=== PATIENT | male | born 2000 | race Caucasian/White ===

== ENCOUNTER 2021-09-05 10:44 | Emergency (ER) | payer BC ==
[2021-09-05] MEDS ORDERED: lidocaine 1% 20 ML MDV SUBQ ONE (10:55)
--- NOTE | 2021-09-05 10:56 | ED Physician Documentation ---
History of Present Illness - Stated complaint Stated Complaint: LT TOE PX - History obtained from History obtained from: Patient - Additonal information Additional information: 3 to 4 months of pain from an ingrown toenail that he has been trying to deal with from with soaking it and manipulation but getting worse with more signs of infection. No fevers. Review of Systems Constitutional: reports: Reviewed and negative Eyes: reports: Reviewed and negative Cardiac: reports: Reviewed and negative Respiratory: reports: Reviewed and negative PD PAST MEDICAL HISTORY - Present Medications Home Medications: Ambulatory Orders Medication Instructions Recorded Confirmed cephALEXin [Keflex] 500 mg PO Q6H #28 cap 09/05/21 - Allergies Allergies/Adverse Reactions: Allergies Allergy/AdvReac Type Severity Reaction Status Date / Time No Known Drug Allergies Allergy Verified 09/05/21 11:00 PD ED PE NORMAL - Vitals Vital signs reviewed: Yes - General General: Alert and oriented X 3, No acute distress - Extremities Extremities: Other (Severely ingrown medial and lateral surfaces of the left great toenail with cellulitis up to the inner phalangeal joint. ) - Neuro Neuro: Alert and oriented X 3, Normal speech Results - Vitals Vitals: Vital Signs - 24 hr 09/05/21 10:58 Temperature 36.4 C L Heart Rate 73 Respiratory 16 Rate Blood Pressure 137/91 H O2 Saturation 99 Oxygen O2 Source Room air Procedures - General procedure General procedure: After verbal informed consent the left great toe was anesthetized using 1% lidocaine with a digital block with excellent anesthesia. The medial and lateral fifth of the toenail was sharply excised and debrided. Base was cauterized with silver nitrate and a dressing was placed. Departure - Departure Disposition: 01 Home, Self Care Clinical Impression: Ingrown toenail of left foot with infection Condition: Good Record reviewed to determine appropriate education?: Yes Instructions: ED Ingrown Toenail Excised Prescriptions: cephALEXin [Keflex] 500 mg PO Q6H #28 cap Comments: Prescription for antibiotic sent electronically to [facility] in [place]. Keep it covered with a dressing, return for new or worsening symptoms. Wash with soap and water at least once daily. Forms: Activity restrictions
[2021-09-05 11:01] VITALS: BP 137/91
[2021-09-05] MEDS ORDERED: SILVER NITRATE APPLICATOR TOP STA (11:01)
== END 2021-09-05 11:22 | disposition home or self-care (01) ==
LOC: ED 10:44
DX: L60.0 Ingrowing nail (principal); L08.9 Local infection of the skin and subcutaneous tissue, unspecified
CPT/HCPCS: 11765; 99282; 99283

== ENCOUNTER 2022-07-04 14:32 | Outpatient (CLI) | payer BC ==
--- NOTE | 2022-07-05 12:06 | XRAY Report ---
PROCEDURE: Foot 3 View LT INDICATIONS: L GREAT TOE PX TECHNIQUE: 3 views of the foot were acquired. COMPARISON: None FINDINGS: Bones: No fractures or dislocations. No suspicious bony lesions. Soft tissues: No tibiotalar joint effusion. Achilles tendon appears normal. IMPRESSION: No visualized acute fracture or dislocation. However, occult injury cannot be excluded. Recommend enma rt interval imaging follow-up in 7-10 days as clinically indicated for additional evaluation. Reviewed by: Erum Love MD on 07/05/2022 12:04 PM [facility] Approved by: Erum Love MD on 07/05/2022 12:04 PM [facility] Station ID: [id number]
== END 2022-07-04 14:33 | disposition home or self-care (01) ==
LOC: DI.N 14:32
PROVIDERS: ATTEND Registered Nurse
DX: M79.675 Pain in left toe(s) (principal)

== ENCOUNTER 2022-09-24 10:46 | Outpatient (CLI) | payer BC ==
--- NOTE | 2022-09-24 13:26 | XRAY Report ---
PROCEDURE: Toe(s) LT INDICATIONS: TOE PX TECHNIQUE: 3 views of the left toe(s) acquired. COMPARISON: Correlation is made with the plain films, 07/04/2022. FINDINGS: Bones: No fractures or dislocations. No suspicious bony lesions. Soft tissues: No suspicious soft tissue densities. IMPRESSION: Negative for displaced fracture by plain film. Reviewed by: Kiet Torres MD on 09/24/2022 12:25 PM [facility] Approved by: Kiet Torres MD on 09/24/2022 12:25 PM [facility] Station ID: [id number]
== END 2022-09-24 10:47 | disposition home or self-care (01) ==
LOC: LAB 10:46 → DI 10:47
PROVIDERS: ATTEND Family Medicine
DX: L60.0 Ingrowing nail (principal)
CPT/HCPCS: 73660